=== PATIENT | male | born 1960 | race African-American/Black ===

== ENCOUNTER 2017-11-01 01:59 | Inpatient (IN) | payer OTHER ==
[~2017-11-01] VITALS: Ht 170.2 cm; Wt 72.1 kg
[2017-11-01] MEDS ORDERED: METHYLPREDNISOLONE SOD SUCC 125 MG/2 ML VIAL IV STA (02:24)
[2017-11-01] MEDS ORDERED: IPRATROPIUM BROMIDE (0.02%) 0.5MG/2.5ML NEB HHN STA (02:24)
[2017-11-01] MEDS ORDERED: ALBUTEROL (0.083%) 2.5MG/3ML NEB HHN STA (02:24)
[2017-11-01] MEDS ORDERED: MAGNESIUM 2 G PREMIX 50 ML IV ONE (02:30)
[2017-11-01] MEDS ORDERED: ASPIRIN 81MG TABLET PO ONE (02:30)
[2017-11-01 02:50] LABS: BASOPHILS % 1.6 % (0.0-2.0); EOSINOPHILS % 1.8 % (0.0-5.0); HEMATOCRIT. 36.6 % (42.0-52.0); HEMOGLOBIN. 12.1 g/dL (14.0-18.0); LYMPHOCYTES % 30.7 % (20.0-50.0); MEAN CORPUSCULAR HEMOGLOBIN 33.4 pg (28.0-32.0); MEAN CORPUSCULAR VOLUME 100.8 fL (80.0-94.0); MEAN PLATELET VOLUME 8.5 fl (7.4-10.4); MONOCYTES % 8.8 % (2.0-8.0); NEUTROPHILS % 57.1 % (40.0-76.0); PLATELET 312 x1000/uL (130-400); RED BLOOD CELL COUNT 3.63 mill/uL (4.7-6.1); RED CELL DISTRIBUTION WIDTH 14.2 % (11.6-14.6)
[2017-11-01 02:57] LABS: INR 0.9; PARTIAL THROMBOPLASTIN TIME 26.4 sec (23.4-31.0); PROTHROMBIN TIME 9.8 sec (9.4-11.6)
[2017-11-01 03:20] LABS: CHLORIDE 112 mEq/L (98-107)
[2017-11-01 03:30] LABS: ETHANOL BLOOD 289 mg/dL
[2017-11-01] MEDS ORDERED: SODIUM CHLORIDE 0.9% 1,000 ML IV ONE (04:00)
[2017-11-01] MEDS: ENOXAPARIN 80MG/0.8ML SYR SUBCUT SCH ×2 (04:45→15:53)
[2017-11-01 10:02] LABS: CLARITY URINE CLEAR (CLEAR); COLOR URINE YELLOW (YELLOW); KETONES URINE NEGATIVE (NEGATIVE); LEUKOCYTE ESTERASE URINE NEGATIVE (NEGATIVE); NITRITE URINE NEGATIVE (NEGATIVE); OCCULT BLOOD URINE 1+ (NEGATIVE); PROTEIN URINE 3+ (NEGATIVE); SPECIFIC GRAVITY URINE 1.013 (1.005-1.030); UROBILINOGEN URINE 0.2 E.U./dL (0.2-1.0)
[2017-11-01 10:17] LABS: *AMPHETAMINES SCREEN URINE NEGATIVE (NEGATIVE); *BARBITURATES SCREEN URINE PRESUMTIVE POSITIVE (NEGATIVE); *BENZODIAZEPINES SCREEN URINE NEGATIVE (NEGATIVE); *COCAINE SCREEN URINE PRESUMTIVE POSITIVE (NEGATIVE); METHADONE URINE SCREEN NEGATIVE (NEGATIVE); OPIATES URINE SCREEN NEGATIVE (NEGATIVE)
[2017-11-01 10:18] LABS: CANNABINOID URINE SCREEN NEGATIVE (NEGATIVE); PHENCYCLIDINE URINE SCREEN NEGATIVE (NEGATIVE)
[2017-11-01] MEDS ORDERED: ONDANSETRON HCL 4MG/2ML VIAL IV PRN (10:45)
[2017-11-01] MEDS ORDERED: DIPHENHYDRAMINE 50MG/ML VIAL IV PRN (10:45)
[2017-11-01] MEDS ORDERED: HYDRALAZINE 20MG/ML VIAL IV PRN (10:45)
[2017-11-01] MEDS ORDERED: MAGNESIUM/ALUMINUM HYDROXIDE/SIMETHICONE 30ML UDC PO PRN (10:45)
[2017-11-01] MEDS: CLONIDINE 0.1MG TABLET PO PRN ×2 (11:48→18:43)
[2017-11-01] MEDS: AMLODIPINE 5MG TABLET PO SCH ×2 (11:48→22:29)
[2017-11-01] MEDS: ACETAMINOPHEN 325MG TABLET PO PRN (11:49)
[2017-11-01] MEDS ORDERED: KEPP500 PO (13:35)
[2017-11-01] MEDS ORDERED: CYCL10TA7 PO (13:35)
[2017-11-01] MEDS ORDERED: GLIP5TAB12 PO (13:35)
[2017-11-01] MEDS ORDERED: ALBU18HF2 IH (13:35)
[2017-11-01] MEDS ORDERED: THIA100T72 PO (13:35)
[2017-11-01] MEDS ORDERED: ATOR40TA70 PO (13:35)
[2017-11-01] MEDS ORDERED: NAPR-681 PO (13:35)
[2017-11-01] MEDS ORDERED: FLUT1DIS3 IH (13:35)
[2017-11-01] MEDS ORDERED: PANT40TA4 PO (13:35)
[2017-11-01] MEDS ORDERED: HYDR-4134 PO (13:35)
[2017-11-01] MEDS ORDERED: BUTA-288 PO (13:35)
[2017-11-01] MEDS ORDERED: SUCR1TAB PO (13:35)
[2017-11-01] MEDS ORDERED: DILT180C69 PO (13:35)
[2017-11-01] MEDS ORDERED: METF500T4 PO (13:37)
[2017-11-01] MEDS ORDERED: DEXTROSE 50% WATER 50ML SYRINGE IV PRN (13:45)
[2017-11-01 13:55] VITALS: BP 184/91
[2017-11-01] MEDS ORDERED: NITROGLYCERIN OINT 1GM/INCH UDPKT TD SCH (14:00)
[2017-11-01] MEDS ORDERED: IPRATROPIUM/ALBUTEROL 0.5-3(2.5)MG/3ML NEB INH PRN (15:00)
[2017-11-01 15:51] VITALS: BP 183/93
[2017-11-01] MEDS: HYDRALAZINE HCL 25MG TABLET PO SCH ×2 (15:52→21:16)
[2017-11-01] MEDS: LEVETIRACETAM 500MG TABLET PO SCH ×2 (15:53→21:15)
[2017-11-01] MEDS: DILTIAZEM HCL 60MG TABLET PO SCH ×2 (15:53→21:15)
[2017-11-01] MEDS: GLIPIZIDE 5MG TABLET PO SCH (15:53)
[2017-11-01] MEDS: BLOOD SUGAR DIAGNOSTIC STRIP TEST SCH ×2 (16:58→21:16)
[2017-11-01] MEDS: INSULIN LISPRO 100 UNITS/ML SUBCUT SCH ×2 (16:58→21:00)
[2017-11-01] MEDS: SODIUM CHLORIDE 0.9% INJ 3ML FLUSH IVF SCH ×2 (16:58→21:17)
[2017-11-01] MEDS: METFORMIN HCL 500MG TABLET PO SCH (16:58)
[2017-11-01 20:00] VITALS: BP 174/90
[2017-11-01 20:43] LABS: T4 FREE 0.6 ng/dL (0.76-1.46)
[2017-11-01] MEDS ORDERED: ATORVASTATIN CALCIUM 40MG TABLET PO SCH (21:00)
[2017-11-01] MEDS: OMEPRAZOLE 20MG CAPSULE EXTENDED RELEASE PO SCH (21:16)
[2017-11-01 23:54] LABS: CREATINE KINASE MB FRACTION 8.2 ng/mL (0.5-3.6)
[2017-11-02] VITALS: BP 153/82
[2017-11-02 04:00] VITALS: BP 159/77
[2017-11-02] MEDS: BLOOD SUGAR DIAGNOSTIC STRIP TEST SCH ×2 (05:31→12:20)
[2017-11-02] MEDS: SODIUM CHLORIDE 0.9% INJ 3ML FLUSH IVF SCH (06:14)
[2017-11-02] MEDS: GLIPIZIDE 5MG TABLET PO SCH (06:14)
[2017-11-02] MEDS: OMEPRAZOLE 20MG CAPSULE EXTENDED RELEASE PO SCH (06:15)
[2017-11-02] MEDS: DILTIAZEM HCL 60MG TABLET PO SCH ×2 (06:15→13:14)
[2017-11-02] MEDS: HYDRALAZINE HCL 25MG TABLET PO SCH ×2 (06:15→13:13)
[2017-11-02] MEDS: METFORMIN HCL 500MG TABLET PO SCH (06:15)
[2017-11-02] MEDS: ACETAMINOPHEN 325MG TABLET PO PRN (06:50)
[2017-11-02] MEDS: INSULIN LISPRO 100 UNITS/ML SUBCUT SCH ×2 (07:15→12:15)
[2017-11-02 07:38] LABS: CREATINE KINASE MB FRACTION 6.3 ng/mL (0.5-3.6)
[2017-11-02 08:00] VITALS: BP 144/76
[2017-11-02] MEDS: LEVETIRACETAM 500MG TABLET PO SCH (08:03)
[2017-11-02] MEDS: AMLODIPINE 5MG TABLET PO SCH (08:03)
[2017-11-02] MEDS ORDERED: CLOPIDOGREL 75MG TABLET PO SCH (09:00)
[2017-11-02] MEDS ORDERED: ENOXAPARIN 40MG/0.4ML SYR SUBCUT SCH (09:00)
[2017-11-02] MEDS ORDERED: ASPIRIN 81MG TABLET PO SCH ×2 (09:00)
[2017-11-02 12:00] VITALS: BP 168/91
[2017-11-02 15:24] VITALS: BP 154/80
[2017-11-02] MEDS ORDERED: IPRATROPIUM/ALBUTEROL 0.5-3(2.5)MG/3ML NEB HHN PRN (16:00)
[2017-11-02] MEDS ORDERED: IPRATROPIUM/ALBUTEROL 0.5-3(2.5)MG/3ML NEB HHN SCH (16:00)
[2017-11-02] MEDS ORDERED: BUDESONIDE 0.5MG/2ML NEB HHN SCH (16:00)
[2017-11-02 16:08] LABS: CREATINE KINASE MB FRACTION 5.2 ng/mL (0.5-3.6)
== END 2017-11-02 13:55 | disposition home or self-care (01) | DRG 205 ==
LOC: ER 01:59 → EDBD 04:12 → 5WST 04:12 → EDBEDREQTM 05:25 → EDBEDREQ 05:25 → ENRESERV 12:02
PROVIDERS: ADMIT Internal Medicine; ATTEND Internal Medicine
DX: M94.0 Chondrocostal junction syndrome [Tietze] (principal); J96.00 Acute respiratory failure, unspecified whether with hypoxia or hypercapnia; J18.9 Pneumonia, unspecified organism; J44.0 Chronic obstructive pulmonary disease with (acute) lower respiratory infection; J44.1 Chronic obstructive pulmonary disease with (acute) exacerbation; R07.89 Other chest pain; I25.10 Atherosclerotic heart disease of native coronary artery without angina pectoris; E11.9 Type 2 diabetes mellitus without complications; E78.5 Hyperlipidemia, unspecified; F14.10 Cocaine abuse, uncomplicated; F17.210 Nicotine dependence, cigarettes, uncomplicated; F32.9 Major depressive disorder, single episode, unspecified; G40.909 Epilepsy, unspecified, not intractable, without status epilepticus; I10 Essential (primary) hypertension; I25.2 Old myocardial infarction; Z90.81 Acquired absence of spleen; Z86.73 Personal history of transient ischemic attack (TIA), and cerebral infarction without residual deficits; Z79.899 Other long term (current) drug therapy; Z88.8 Allergy status to other drugs, medicaments and biological substances; Z88.6 Allergy status to analgesic agent; Z59.0 Homelessness
CPT/HCPCS: 36415; 71045; 80053; 80061; 80305; 81003; 82550; 82553; 82962; 83036; 83690; 83880; 84439; 84443; 84484; 85025; 85379; 85610; 85730; 87040; 87086; 93005; 93306; 93970; 96361; 96365; 96375; 99291; G0482; J0360; J1650; J1815; J2930; J3475